=== PATIENT | male | born 1995 | race Caucasian/White ===

== ENCOUNTER 2017-01-19 01:10 | Emergency (ER) | payer OTHER ==
[~2017-01-19] VITALS: Ht 170.2 cm; Wt 87.1 kg
[2017-01-19 01:13] VITALS: BP 132/90
--- NOTE | 2017-01-19 01:24 | NUR ---
TO ER OF2
--- NOTE | 2017-01-19 01:24 | NUR ---
PATIENT PRESENTS TO ED WITH SORETHROAT,FOR 3 DAYS . PT STATES DENIES N/V/D; SKIN IS PINK/WARM/DRY; AAOX4 WITH EVEN AND STEADY GAIT; LUNGS CLEAR BL; HR EVEN AND REGULAR; PT DENIES ANY FEVER, CP, SOB, OR COUGH AT THIS TIME; PATIENT STATES PAIN OF 6/10 AT THIS TIME; VSS; PATIENT POSITIONED FOR COMFORT; HOB ELEVATED; BEDRAILS UP X2; BED DOWN. ER MD MADE AWARE OF PT STATUS.
--- NOTE | 2017-01-19 01:25 | NUR ---
Patient being evaluated by physician.
--- NOTE | 2017-01-19 01:32 | NUR ---
Patient discharged with v/s stable BY ER MD DR FLOWERS. Written and verbal after care instructions given and explained BY ER MD DR FLOWERS. Patient alert, oriented and verbalized understanding of instructions. Ambulatory with steady gait. All questions addressed prior to discharge BY ER MD DR FLOWERS. ID band removed. Patient advised to follow up with PMD. Rx of AUGMENTIN 875MG given. Patient educated on indication of medication including possible reaction and side effects. Opportunity to ask questions provided and answered BY ER MD DR FLOWERS.
[2017-01-19 01:33] VITALS: BP 130/82
== END 2017-01-19 01:32 | disposition home or self-care (01) ==
LOC: MED 01:10
DX: J02.9 Acute pharyngitis, unspecified (principal); R03.0 Elevated blood-pressure reading, without diagnosis of hypertension

== ENCOUNTER 2017-03-25 12:25 | Emergency (ER) | payer OTHER ==
[~2017-03-25] VITALS: Ht 174 cm; Wt 89.0 kg
[2017-03-25 12:29] VITALS: BP 146/93
--- NOTE | 2017-03-25 12:45 | NUR ---
Patient returned to ED lobby via wheelchair after completion of XRAY.
--- NOTE | 2017-03-25 13:15 | NUR ---
PATIENT PRESENTS TO ED WITH RIGHT HAND INJURY WHILE PLAYING BASKETBALL YESTERDAY---NOTABLE EDEMA,TENDER--+2 RADIAL PULSE <3 SEC CAP REFILL . PT STATES . DENIES N/V/D; SKIN IS PINK/WARM/DRY; AAOX4 WITH EVEN AND STEADY GAIT; LUNGS CLEAR BL; HR EVEN AND REGULAR; PT DENIES ANY FEVER, CP, SOB, OR COUGH AT THIS TIME; PATIENT STATES PAIN OF 8/10 AT THIS TIME; VSS; PATIENT POSITIONED FOR COMFORT; HOB ELEVATED; BEDRAILS UP X2; BED DOWN. ER MD MADE AWARE OF PT STATUS.
--- NOTE | 2017-03-25 13:52 | NUR ---
INSTRUCTED TO MAINTAIN HAND ABOVE HEART LEVEL TO HELP REDUCE SWELLING AND PAIN. ICE OFTEN TOLERATED AND F/U WITH PMD TODAY
--- NOTE | 2017-03-25 14:14 | NUR ---
Patient discharged with v/s stable. Written and verbal after care instructions given and explained. Patient alert, oriented and verbalized understanding of instructions. Ambulatory with steady gait. All questions addressed prior to discharge. ID band removed. Patient advised to follow up with PMD. Rx of MOTRIN/NORCO given. Patient educated on indication of medication including possible reaction and side effects. Opportunity to ask questions provided and answered.
[2017-03-25 14:15] VITALS: BP 121/72
== END 2017-03-25 14:14 | disposition home or self-care (01) ==
LOC: MED 12:25
DX: S62.326A Displaced fracture of shaft of fifth metacarpal bone, right hand, initial encounter for closed fracture (principal); X58.XXXA Exposure to other specified factors, initial encounter; Y93.67 Activity, basketball; Y92.89 Other specified places as the place of occurrence of the external cause; Y99.8 Other external cause status
CPT/HCPCS: 73130; 99284

== ENCOUNTER 2018-07-28 09:40 | Emergency (ER) | payer OTHER ==
[~2018-07-28] VITALS: Ht 172.7 cm; Wt 103.1 kg
[2018-07-28 09:55] VITALS: BP 138/83
--- NOTE | 2018-07-28 09:56 | NUR ---
PT AMBULATED TO ER BED 02
--- NOTE | 2018-07-28 10:00 | NUR ---
edmd at bedside performing mse
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
--- NOTE | 2018-07-28 10:20 | NUR ---
SPICE BLENDER AT BEDSIDE
[2018-07-28 10:55] VITALS: BP 130/80
== END 2018-07-28 10:57 | disposition home or self-care (01) ==
LOC: MED 09:40
DX: S63.611A Unspecified sprain of left index finger, initial encounter (principal); W22.8XXA Striking against or struck by other objects, initial encounter; Y93.89 Activity, other specified; Y92.89 Other specified places as the place of occurrence of the external cause; Y99.8 Other external cause status
CPT/HCPCS: 73140; 99285; Q0092; 99283